=== PATIENT | female | born 1995 | race Caucasian/White ===

== ENCOUNTER 2016-12-28 19:57 | Emergency (ER) | payer OTHER | END 2016-12-28 21:30 | disposition left against medical advice (07) | LOC: ER1 19:57 | DX: R07.9 Chest pain, unspecified (principal); R06.02 Shortness of breath; Z53.21 Procedure and treatment not carried out due to patient leaving prior to being seen by health care provider | CPT/HCPCS: 93005 ==

== ENCOUNTER → 2020-11-05 | Outpatient (CLI) | payer OTHER ==
[~2020-11-05] MED LIST: IBUPROFEN600 MG PO; MACROBID 100 M100 MG PO; NORFLEX 100 MG100 MG PO
[2020-11-05 10:52] LABS: HEMOGLOBIN 14.9 gm/dl (12.3-15.3); RED BLOOD COUNT 4.84 M/UL (4.00-5.10); WHITE BLOOD COUNT 10.3 K/UL (4.5-11.0)
[2020-11-05 11:24] LABS: BUN/CREATININE RATIO 22 (0-10)
== END ==
LOC: LAB 10:28
PROVIDERS: Nurse Practitioner Family
DX: Z13.29 Encounter for screening for other suspected endocrine disorder (principal); E55.9 Vitamin D deficiency, unspecified
CPT/HCPCS: 36415; 80053; 80061; 82607; 83036; 84439; 84443; 85025

== ENCOUNTER 2021-08-06 12:17 | Emergency (ER) | payer OTHER ==
[2021-08-06] MEDS ORDERED: IBUPROFEN600 MG PO ×2 (15:03→15:29)
[2021-08-06] MEDS ORDERED: PERCOCET 5/325 T1 EA PO ×2 (15:03→15:29)
== END 2021-08-06 15:32 | disposition home or self-care (01) ==
LOC: ER1 12:17
DX: M54.9 Dorsalgia, unspecified (principal); F17.210 Nicotine dependence, cigarettes, uncomplicated
CPT/HCPCS: 99283